=== PATIENT | male | born 1990 | race Caucasian/White ===

== ENCOUNTER → 2017-02-15 | Outpatient (CLI) | payer OTHER ==
--- NOTE | 2017-02-16 14:27 | PULMONARY FUNCTION TEST ---
Spirometry shows a low normal forced vital capacity with a mildly decreased FEV1. The FEV1/FVC ratio was normal at 77%. The mid flow rates were mildly decreased to 66%. This is not definitively abnormal, but cannot exclude small airways dysfunction. Overall, the pattern is borderline normal with an inability to exclude small airways dysfunction. There is a listed history of childhood asthma. Consideration could be given to doing spirometry before and after bronchodilators. Clinical correlation is advised.
== END | disposition home or self-care (01) ==
LOC: C.RC 13:39
PROVIDERS: ATTEND Hospitalist
DX: R05 Cough (principal); J30.89 Other allergic rhinitis; Z87.09 Personal history of other diseases of the respiratory system